=== PATIENT | male | born 1965 | race Caucasian/White ===

== ENCOUNTER → 2018-10-24 | Outpatient (CLI) | payer OTHER ==
[~2018-10-24] MED LIST: Catapres-Tts 10.1 MG PO; GUAIFENESI100 MG/51 PO; LAMOTRIGINE200 MG PO; PHENERGAN W/ DE30 ML PO; PREDNICOT10 MG PO; PROAIR HFA0.09 MG/AC INH; SERTRALINE100 MG PO; SIMVASTATIN80 MG PO; ZESTRIL,PRINIVI20 MG PO; ZOLPIDEM5 MG PO
== END | disposition home or self-care (01) ==
LOC: MRI 15:00
DX: M18.9 Osteoarthritis of first carpometacarpal joint, unspecified (principal); M25.432 Effusion, left wrist; I10 Essential (primary) hypertension; Z91.81 History of falling

== ENCOUNTER → 2018-11-09 | Outpatient (CLI) | payer OTHER ==
[2018-11-09 12:10] LABS: BUN 15 mg/dl (7-24); CHLORIDE 106 mmol/L (98-107); CREATININE 1.03 mg/dL (0.70-1.30); POTASSIUM 3.5 mmol/L (3.5-5.1); SODIUM 141 mmol/L (136-145)
== END | disposition home or self-care (01) ==
LOC: LAB 11:37
PROVIDERS: Nurse Practitioner Family
DX: E87.6 Hypokalemia (principal)